=== PATIENT | female | born 1990 | race Hispanic/Latino ===

== ENCOUNTER 2020-06-13 19:09 | Emergency (ER) | payer OTHER ==
[2020-06-13] MEDS ORDERED: IBUPROFEN 600 MG TABLET ONE (20:48)
[2020-06-13] MEDS ORDERED: ACETAMINOPHEN EXTRA STRENGTH 500 MG TABLET ONE (20:48)
[2020-06-13] MEDS ORDERED: L.E.T. GEL 4%/0.5%/0.18% 3ML 3 ML/SYR SYG TP ONE (20:48)
== END 2020-06-13 22:38 | disposition home or self-care (01) ==
LOC: EDH 19:09
DX: S60.212A Contusion of left wrist, initial encounter (principal); Z90.49 Acquired absence of other specified parts of digestive tract; X58.XXXA Exposure to other specified factors, initial encounter; Y93.89 Activity, other specified; Y92.89 Other specified places as the place of occurrence of the external cause; Y99.8 Other external cause status
CPT/HCPCS: 73100

== ENCOUNTER 2020-08-22 07:41 | Emergency (ER) | payer OTHER ==
[~2020-08-22] VITALS: Ht 172.7 cm; Wt 93.0 kg
[2020-08-22 08:36] VITALS: BP 150/64
[2020-08-22] MEDS ORDERED: KETOROLAC 30MG VIAL (30MG/ML) IV SCH (10:00)
[2020-08-22] MEDS ORDERED: MORPHINE 4 MG SYG (4MG/1ML) IV SCH (10:00)
[2020-08-22] MEDS ORDERED: IBUP-2070 PO (13:02)
[2020-08-22 14:00] VITALS: BP 146/90
== END 2020-08-22 14:01 | disposition home or self-care (01) ==
LOC: EDH 07:41 → EDSEX 07:41 → EDH 14:01
DX: R22.32 Localized swelling, mass and lump, left upper limb (principal); M79.602 Pain in left arm; Z79.899 Other long term (current) drug therapy; Z72.89 Other problems related to lifestyle; X50.1XXA Overexertion from prolonged static or awkward postures, initial encounter; Y93.89 Activity, other specified; Y92.238 Other place in hospital as the place of occurrence of the external cause; Y99.8 Other external cause status
CPT/HCPCS: 73030; 73060; 76882; 96374; 96375; 99284; J1885; J2270